=== PATIENT | female | born 1970 | race Two or more races ===

== ENCOUNTER 2019-10-15 13:54 | Outpatient (CLI) | payer OTHER ==
[~2019-10-15 13:54] MED LIST: DIOVAN160 M1 PO
== END 2019-10-15 14:05 | disposition home or self-care (01) ==
LOC: MAMO-SONO 13:54
PROVIDERS: ATTEND Internal Medicine
DX: Z12.31 Encounter for screening mammogram for malignant neoplasm of breast (principal); D49.3 Neoplasm of unspecified behavior of breast